=== PATIENT | female | born 1960 | race Two or more races ===

== ENCOUNTER → 2020-03-18 | Outpatient (CLI) | payer OTHER ==
[2020-03-18 08:26] LABS: Basophils # (auto) 0.1 10 ^3/uL (0-0.2); Basophils % (auto) 1.2 % (0.0-2.0); Eosinophils # (auto) 0.2 10 ^3/uL (0-0.8); Eosinophils % (auto) 3.2 % (0.0-7.0); Hematocrit 40.8 % (36.0-46.0); Hemoglobin 13.6 g/dL (12.2-16.2); Lymphocytes % (auto) 35.7 % (10.0-50.0); Mean Corpuscular Hemoglobin 28.8 pg (28.0-32.0); Mean Corpuscular Hgb Conc. 33.4 g/dL (32.0-36.0); Mean Corpuscular Volume 86.3 fL (80.0-100.0); Monocytes # (auto) 0.5 10 ^3/uL (0-1.3); Monocytes % (auto) 8.3 % (0.0-12.0); Neutrophils # (auto) 2.9 10 ^3/uL (1.6-8.6); Neutrophils % (auto) 51.6 % (37.0-80.0); Nucleated Red Blood Cells % 0.1 %; Platelet Count (auto) 308 10^3/uL (140-450); Red Blood Cells 4.72 10^6/uL (4.0-5.20); Red Cell Distribution Width 13.1 % (11.8-14.3); White Blood Cell 5.6 10^3/uL (4.4-10.8)
[2020-03-18 08:31] LABS: Urine Bacteria NONE SEEN /hpf (None Seen); Urine Blood TRACE /uL (Negative); Urine Specific Gravity 1.018 (1.001-1.035); Urine WBC 1 /hpf (0 - 5)
[2020-03-18 09:31] LABS: Potassium 3.9 mmol/L (3.5-5.1)
[2020-03-18 09:39] LABS: Albumin 4.2 g/dL (3.4-5.0); Bilirubin, Total 0.5 mg/dL (0.2-1.0); Calcium 9.1 mg/dL (8.5-10.1); Total Protein 7.9 g/dL (6.4-8.2)
== END | disposition home or self-care (01) ==
LOC: LAB 07:44
PROVIDERS: ATTEND Internal Medicine
DX: E78.1 Pure hyperglyceridemia (principal); R53.83 Other fatigue
CPT/HCPCS: 36415; 80053; 80061; 81001; 84439; 84443; 85025; 85652

== ENCOUNTER → 2020-07-27 | Outpatient (CLI) | payer OTHER | END | disposition home or self-care (01) | LOC: LAB 15:31 | PROVIDERS: ATTEND Urology | DX: N39.0 Urinary tract infection, site not specified (principal) | CPT/HCPCS: 87086 ==

== ENCOUNTER → 2021-03-29 | Outpatient (CLI) | payer OTHER ==
[2021-03-29 10:41] LABS: Basophils # (auto) 0.1 10 ^3/uL (0-0.2); Basophils % (auto) 1.1 % (0.0-2.0); Eosinophils # (auto) 0.2 10 ^3/uL (0-0.8); Eosinophils % (auto) 3.9 % (0.0-7.0); Hematocrit 39.5 % (36.0-46.0); Hemoglobin 13.4 g/dL (12.2-16.2); Lymphocytes # (auto) 1.9 10 ^3/uL (0.4-5.4); Lymphocytes % (auto) 37.7 % (10.0-50.0); Mean Corpuscular Hemoglobin 29.1 pg (28.0-32.0); Mean Corpuscular Volume 85.6 fL (80.0-100.0); Monocytes # (auto) 0.3 10 ^3/uL (0-1.3); Monocytes % (auto) 6.8 % (0.0-12.0); Neutrophils # (auto) 2.6 10 ^3/uL (1.6-8.6); Neutrophils % (auto) 50.5 % (37.0-80.0); Red Blood Cells 4.61 10^6/uL (4.0-5.20); Red Cell Distribution Width 12.7 % (11.8-14.3); White Blood Cell 5.1 10^3/uL (4.4-10.8)
[2021-03-29 11:07] LABS: Urine Bacteria FEW /hpf (None Seen); Urine Blood Negative /uL (Negative); Urine WBC 4 /hpf (0 - 5)
[2021-03-29 11:33] LABS: Potassium 4.3 mmol/L (3.5-5.1)
[2021-03-29 12:12] LABS: Albumin 4.6 g/dL (3.4-5.0); BUN/Creatinine Ratio 27.6; Bilirubin, Total 0.6 mg/dL (0.2-1.0); Calcium 9.3 mg/dL (8.5-10.1); Total Protein 7.8 g/dL (6.4-8.2)
== END | disposition home or self-care (01) ==
LOC: LAB 10:03
PROVIDERS: ATTEND Internal Medicine
DX: E78.1 Pure hyperglyceridemia (principal)
CPT/HCPCS: 36415; 80053; 80061; 81001; 84439; 84443; 85025; 85652

== ENCOUNTER → 2021-04-06 | Outpatient (CLI) | payer OTHER | END | disposition home or self-care (01) | LOC: LAB 09:49 | PROVIDERS: ATTEND Internal Medicine | DX: Z12.11 Encounter for screening for malignant neoplasm of colon (principal) | CPT/HCPCS: 82270 ==

== ENCOUNTER → 2021-10-19 | Outpatient (CLI) | payer OTHER ==
[2021-10-19 09:42] LABS: Basophils # (auto) 0.1 10 ^3/uL (0-0.2); Eosinophils # (auto) 0.1 10 ^3/uL (0-0.8); Eosinophils % (auto) 1.9 % (0.0-7.0); Hemoglobin 13.5 g/dL (12.2-16.2); Lymphocytes # (auto) 1.9 10 ^3/uL (0.4-5.4); Mean Corpuscular Hemoglobin 29.5 pg (28.0-32.0); Mean Corpuscular Hgb Conc. 34.5 g/dL (32.0-36.0); Mean Corpuscular Volume 85.5 fL (80.0-100.0); Monocytes # (auto) 0.4 10 ^3/uL (0-1.3); Monocytes % (auto) 6.8 % (0.0-12.0); Neutrophils # (auto) 3.3 10 ^3/uL (1.6-8.6); Neutrophils % (auto) 57.3 % (37.0-80.0); Red Blood Cells 4.56 10^6/uL (4.0-5.20); Red Cell Distribution Width 13.1 % (11.8-14.3); White Blood Cell 5.8 10^3/uL (4.4-10.8)
[2021-10-19 10:37] LABS: Urine Bacteria NONE SEEN /hpf (None Seen); Urine Blood Negative /uL (Negative); Urine Specific Gravity 1.005 (1.001-1.035); Urine WBC <1 /hpf (0 - 5)
[2021-10-19 11:26] LABS: Albumin 4.4 g/dL (3.4-5.0); Calcium 9.7 mg/dL (8.5-10.1); Potassium 4.4 mmol/L (3.5-5.1)
[2021-10-19 11:31] LABS: BUN/Creatinine Ratio 20.8; Bilirubin, Total 0.5 mg/dL (0.2-1.0)
== END | disposition home or self-care (01) ==
LOC: LAB 09:16
PROVIDERS: ATTEND Internal Medicine
DX: K21.9 Gastro-esophageal reflux disease without esophagitis (principal); E78.1 Pure hyperglyceridemia
CPT/HCPCS: 36415; 80053; 80061; 81001; 84439; 84443; 85025; 85652

== ENCOUNTER → 2022-10-10 | Outpatient (CLI) | payer OTHER | END | disposition home or self-care (01) | LOC: LAB 12:21 | PROVIDERS: ATTEND Internal Medicine | DX: Z12.11 Encounter for screening for malignant neoplasm of colon (principal) | CPT/HCPCS: 82270 ==

== ENCOUNTER → 2022-11-21 | Outpatient (CLI) | payer OTHER ==
[2022-11-21 07:56] LABS: Basophils # (auto) 0.1 10 ^3/uL (0-0.2); Basophils % (auto) 1.3 % (0.0-2.0); Eosinophils # (auto) 0.2 10 ^3/uL (0-0.8); Eosinophils % (auto) 4.3 % (0.0-7.0); Hematocrit 38.1 % (36.0-46.0); Hemoglobin 13.1 g/dL (12.2-16.2); Lymphocytes # (auto) 2.5 10 ^3/uL (0.4-5.4); Lymphocytes % (auto) 48.6 % (10.0-50.0); Mean Corpuscular Hemoglobin 28.8 pg (28.0-32.0); Mean Corpuscular Hgb Conc. 34.4 g/dL (32.0-36.0); Mean Corpuscular Volume 83.6 fL (80.0-100.0); Monocytes # (auto) 0.3 10 ^3/uL (0-1.3); Monocytes % (auto) 6.7 % (0.0-12.0); Neutrophils % (auto) 39.1 % (37.0-80.0); Nucleated Red Blood Cells % 0.1 %; Red Blood Cells 4.55 10^6/uL (4.0-5.20); Red Cell Distribution Width 13.2 % (11.8-14.3); White Blood Cell 5.1 10^3/uL (4.4-10.8)
[2022-11-21 08:06] LABS: Urine Bacteria NONE SEEN /hpf (None Seen); Urine Blood 1+ /uL (Negative); Urine Mucus FEW (None Seen); Urine Specific Gravity 1.021 (1.001-1.035); Urine WBC 3 /hpf (0 - 5)
[2022-11-21 08:28] LABS: Potassium 4.3 mmol/L (3.5-5.1)
[2022-11-21 08:32] LABS: BUN/Creatinine Ratio 25.8; Bilirubin, Total 0.5 mg/dL (0.2-1.0); Total Protein 7.3 g/dL (6.4-8.2); Uric Acid 4.2 mg/dL (2.6-6.0)
== END | disposition home or self-care (01) ==
LOC: LAB 07:32
PROVIDERS: ATTEND Internal Medicine
DX: S46.009A Unspecified injury of muscle(s) and tendon(s) of the rotator cuff of unspecified shoulder, initial encounter (principal); N20.0 Calculus of kidney; X58.XXXA Exposure to other specified factors, initial encounter; Y93.89 Activity, other specified; Y92.89 Other specified places as the place of occurrence of the external cause; Y99.8 Other external cause status
CPT/HCPCS: 36415; 80053; 80061; 81001; 83970; 84439; 84443; 84550; 85025; 85652

== ENCOUNTER → 2023-09-27 | Outpatient (CLI) | payer OTHER | END | disposition home or self-care (01) | LOC: LAB 12:28 | PROVIDERS: ATTEND Internal Medicine | DX: E78.1 Pure hyperglyceridemia (principal); M25.50 Pain in unspecified joint; D57 Sickle-cell disorders | CPT/HCPCS: 82274 ==

== ENCOUNTER → 2024-11-04 | Outpatient (CLI) | payer OTHER ==
[2024-11-04 12:41] LABS: Basophils # (auto) 0 10 ^3/uL (0-0.2); Basophils % (auto) 0.6 % (0.0-2.0); Eosinophils # (auto) 0.1 10 ^3/uL (0-0.8); Eosinophils % (auto) 1.2 % (0.0-7.0); Hematocrit 38.9 % (36.0-46.0); Hemoglobin 13.3 g/dL (12.2-16.2); Lymphocytes # (auto) 2.1 10 ^3/uL (0.4-5.4); Lymphocytes % (auto) 31.2 % (10.0-50.0); Mean Corpuscular Hemoglobin 29.2 pg (28.0-32.0); Mean Corpuscular Hgb Conc. 34.2 g/dL (32.0-36.0); Mean Corpuscular Volume 85.3 fL (80.0-100.0); Monocytes # (auto) 0.5 10 ^3/uL (0-1.3); Monocytes % (auto) 7.5 % (0.0-12.0); Neutrophils # (auto) 3.9 10 ^3/uL (1.6-8.6); Neutrophils % (auto) 59.5 % (37.0-80.0); Nucleated Red Blood Cells % 0.1 %; Platelet Count (auto) 373 10^3/uL (140-450); Red Blood Cells 4.56 10^6/uL (4.0-5.20); Red Cell Distribution Width 13.5 % (11.8-14.3); White Blood Cell 6.6 10^3/uL (4.4-10.8)
[2024-11-04 13:20] LABS: Erythrocyte Sedimentation Rate 23 mm/hr (0-20)
[2024-11-04 13:24] LABS: Alanine Aminotransferase 26 U/L (7-40); Alkaline Phosphatase 63 U/L (46-116); Anion Gap 9 (5-15); Blood Urea Nitrogen 13 mg/dL (9-23); CRP High Sensitivity 0.18 mg/dL (<1.0); Calcium 9.8 mg/dL (8.7-10.4); Carbon Dioxide 27 mmol/L (20-31); Chloride 104 mmol/L (98-107); Glucose 87 mg/dL (74-106); Potassium 4.1 mmol/L (3.5-5.1); Sodium 140 mmol/L (136-145)
[2024-11-04 13:25] LABS: Aspartate Aminotransferase 16 U/L (13-40); Bilirubin, Total 0.4 mg/dL (0.2-1.0); Total Protein 7.3 g/dL (5.7-8.2)
[2024-11-04 13:36] LABS: Albumin 4.9 g/dL (3.2-4.8)
[2024-11-04 14:10] LABS: Uric Acid 6.7 mg/dL (3.1-7.8)
[2024-11-05 08:07] LABS: Complement C3 156 mg/dL (82-167); Rheumatoid Arthritis Factor 10.7 IU/mL (<14.0); Thyroid Peroxidase (TPO) Ab 12 IU/mL (0-34)
[2024-11-05 16:07] LABS: Anti-Nuclear Antibody Direct Negative (Negative); Anti-dsDNA Antibody 1 IU/mL (0-9); Antiscleroderma-70 Antibody <0.2 AI (0.0-0.9); RNP Antibody 0.2 AI (0.0-0.9); Sjogren's Anti-SS-A Antibody <0.2 AI (0.0-0.9); Sjogren's Anti-SS-B Antibody <0.2 AI (0.0-0.9); Smith Antibody <0.2 AI (0.0-0.9)
== END | disposition home or self-care (01) ==
LOC: LAB 12:04
PROVIDERS: ATTEND Internal Medicine
DX: E78.1 Pure hyperglyceridemia (principal); M25.50 Pain in unspecified joint; R20.2 Paresthesia of skin
CPT/HCPCS: 36415; 80053; 82607; 84443; 84550; 85025; 85652; 86141; 86160; 86225; 86235; 86376; 86431

== ENCOUNTER 2025-01-17 03:38 | Inpatient (IN) | payer OTHER ==
[2025-01-17] VITALS (7 sets, daily range): BP systolic 107–115; BP diastolic 51–61; PULSE 87–111; RESP 18–23; TEMP 98.6–99.8; O2SAT 95–98
[~2025-01-17] VITALS: Ht 157.5 cm; Wt 58.0 kg
[2025-01-17] MEDS ORDERED: ASPirin 81 mg TAB PO ONE (04:15)
[2025-01-17] MEDS ORDERED: ACETAMINOPHEN 325 MG TAB PO ONE (04:15)
[2025-01-17] MEDS: cefTRIAXone 1GM/50ML D5W 50 ML IV ONE (04:21)
[2025-01-17] MEDS: SODIUM CHLORIDE 0.9% 1,000 ML IV ONE ×2 (04:21→05:39)
[2025-01-17 04:27] LABS: Basophils # (auto) 0 10 ^3/uL (0-0.2); Eosinophils # (auto) 0 10 ^3/uL (0-0.8); Hematocrit 38.4 % (36.0-46.0); Hemoglobin 12.9 g/dL (12.2-16.2); Lymphocytes # (auto) 0.6 10 ^3/uL (0.4-5.4); Lymphocytes % (auto) 4.6 % (10.0-50.0); Mean Corpuscular Hemoglobin 28.8 pg (28.0-32.0); Mean Corpuscular Hgb Conc. 33.6 g/dL (32.0-36.0); Mean Corpuscular Volume 85.6 fL (80.0-100.0); Monocytes # (auto) 0.2 10 ^3/uL (0-1.3); Monocytes % (auto) 1.2 % (0.0-12.0); Neutrophils # (auto) 13.1 10 ^3/uL (1.6-8.6); Neutrophils % (auto) 94.2 % (37.0-80.0); Platelet Count (auto) 237 10^3/uL (140-450); Red Blood Cells 4.48 10^6/uL (4.0-5.20); Red Cell Distribution Width 13.8 % (11.8-14.3); White Blood Cell 13.9 10^3/uL (4.4-10.8)
--- NOTE | 2025-01-17 04:56 | DVH ---
EXAM: XY CHEST XRAY 1 VIEW HISTORY: cp COMPARISON: None TECHNIQUE: Portable AP view of the chest was performed. FINDINGS: There are dense infiltrates in the left mid to lower lung. There is mild linear scarring or atelectas is in the right mid lung. No pneumothorax. The left heart border is obscured. IMPRESSION: 1. Consolidative pneumonia in the left mid to lower lung. 2. Mild scarring or atelectasis in the right mid lung.
[2025-01-17 04:57] LABS: Alanine Aminotransferase 17 U/L (7-40); Albumin 4.7 g/dL (3.2-4.8); Alkaline Phosphatase 66 U/L (46-116); Anion Gap 14 (5-15); Aspartate Aminotransferase 28 U/L (13-40); BUN/Creatinine Ratio 33.3 (10.0-20.0); Calcium 8.7 mg/dL (8.7-10.4); Carbon Dioxide 24 mmol/L (20-31); Magnesium 2.1 mg/dL (1.6-2.6); Potassium 3.7 mmol/L (3.5-5.1); Total Protein 7.5 g/dL (5.7-8.2)
[2025-01-17] MEDS: ONDANSETRON HCL 4 MG/2 ML VIAL IV ONE (05:00)
[2025-01-17] MEDS: ACETAMINOPHEN IV 1000 MG/100ML (10MG/ML) IV ONE (05:00)
[2025-01-17 05:01] LABS: Bilirubin, Total 1.4 mg/dL (0.2-1.0); Blood Urea Nitrogen 31 mg/dL (9-23); Chloride 95 mmol/L (98-107); Glucose 125 mg/dL (74-106); Sodium 133 mmol/L (136-145)
--- NOTE | 2025-01-17 05:17 | ED.PDOC ---
History of Present Illness HPI Comments 64-year-old female who came to ER due to chest pain. Patient states for the past 5 days she has been experiencing left lower ribcage pain/ left upper quadrant pain, aggravated by coughing. Patient noted to be pale, diaphoretic and short of breath. Upon arrival, patient hypotensive at 85/56 mm Hg, tachycardic at 120s and was saturating at low 80s on room air. Chief Complaint: Chest Pain Time Seen by MD: 04:00 Reviewed Notes: Nurses Notes Allergies: Coded Allergies: NO KNOWN ALLERGIES (Unverified , 01/17/25) Home Meds Reported Medications Fenofibrate (FENOFIBRATE) 48 Mg Tab, 1 TAB PO DAILY 01/17/25 Information Source: Patient Mode of Arrival: Ambulatory Severity: Moderate Timing: Days Duration: Since onset Review of Systems REVIEW OF SYSTEMS: No fever, no chills, or fatigue HEENT: No sore throat, no earache, no congestion, no neck pain. Cardiac: (+) chest pain. No palpitations. Lungs: (+) shortness of breath, (+) cough. GI: No nausea, no vomiting, no diarrhea, no constipation, no abdominal pain : No dysuria, frequency, or urgency. No hematuria. Musculoskeletal: No joint pain , no joint swelling, no extremity edema. Skin: No rash, no itching. Neuro: No headache, no dizziness, no weakness Vital Signs Vital Signs Date Time Temp Pulse Resp B/P (MAP) Pulse Ox O2 Delivery O2 Flow Rate FiO2 01/17/25 06:52 98.9 102 21 120/82 (95) 95 98.9 01/17/25 06:06 Nasal Cannula* 5 40 Physical Exam General: Awake, alert and oriented. No acute distress. Skin: Skin in warm, dry and intact. Appropriate color for ethnicity. Nailbeds pink with no cyanosis. HEENT: The head is normocephalic and atraumatic. Conjunctivae are clear without exudates or hemorrhage. Sclera is non-icteric. EOM are intact. No signs of nystagmus. Eyelids are normal in appearance without swelling or lesions. Oral mucosa is pink and moist Neck: The neck is supple with normal range of motion. No JVD. Cardiac: Heart rate and rhythm are normal. No murmurs, gallops, or rubs are auscultated. Respiratory: No signs of respiratory distress. Diminished breath sounds left lower lobe. Abdominal: Abdomen is soft, non-tender without distention. Bowel sounds are present and normoactive in all four quadrants. Extremities: Upper and lower extremities are atraumatic in appearance without deformity or edema. Neurological: The patient is awake, alert and oriented to person, place, and time with normal speech. Speech is clear. There is no facial asymmetry. Psychiatric: Appropriate mood and affect. Good judgement and insight. Past Medical History PAST MEDICAL HISTORY: Denies Surgical History: Denies all surgeries RN TRAVELING History: Denies all RN TRAVELING Hx Family History Family History: Reviewed,noncontributory to illness Social History Smoker: Non-Smoker Alcohol: Denies ETOH Use Drugs: Denies Drug Use Lives In: Home Was a procedure done? Was a procedure done?: No EKG EKG : Pulse Rate (adult): 117 Cardiac Rhythm: ST Hypertrophy: RAÚL, LVH Comments No STEMI Differential Dx Considerations may include: Anemia, electrolyte imbalance, pneumonia, upper respiratory infection, mi X-Ray, Labs, Meds, VS Vital Signs Date Time Temp Pulse Resp B/P (MAP) Pulse Ox O2 Delivery O2 Flow Rate FiO2 01/17/25 06:52 98.9 102 21 120/82 (95) 95 98.9 01/17/25 06:06 111 21 95 Nasal Cannula* 5 40 01/17/25 05:40 117 01/17/25 05:02 100.2 111 33 112/63 (79) 95 100.2 01/17/25 04:11 111 01/17/25 03:46 117 01/17/25 03:40 99.9 121 36 86/56 (66) 89 99.9 01/17/25 03:40 92 Nasal Cannula* 2 28 Lab Test 01/17/25 06:55 01/17/25 04:41 01/17/25 04:18 01/17/25 03:46 Range/Units Lactic Acid Level 2.8 *H 3.5 *H 0.4-2.0 mmol/L Troponin I High Sensitivity 4 4 4 </=34 ng/L Lipase 38 12-53 U/L POC Glucose 120 H 70-106 mg/dl White Blood Count 13.9 H 4.4-10.8 10^3/uL Red Blood Count 4.48 4.0-5.20 10^6/uL Hemoglobin 12.9 12.2-16.2 g/dL Hematocrit 38.4 36.0-46.0 % Mean Corpuscular Volume 85.6 80.0-100.0 fL Mean Corpuscular Hemoglobin 28.8 28.0-32.0 pg Mean Corpuscular Hemoglobin Concent 33.6 32.0-36.0 g/dL Red Cell Distribution Width 13.8 11.8-14.3 % Platelet Count 237 140-450 10^3/uL Mean Platelet Volume 7.1 6.9-10.8 fL Neutrophils (%) (Auto) 94.2 H 37.0-80.0 % Lymphocytes (%) (Auto) 4.6 L 10.0-50.0 % Monocytes (%) (Auto) 1.2 0.0-12.0 % Eosinophils (%) (Auto) 0.0 0.0-7.0 % Basophils (%) (Auto) 0.0 0.0-2.0 % Neutrophils # (Auto) 13.1 H 1.6-8.6 10 ^3/uL Lymphocytes # (Auto) 0.6 0.4-5.4 10 ^3/uL Monocytes # (Auto) 0.2 0-1.3 10 ^3/uL Eosinophils # (Auto) 0 0-0.8 10 ^3/uL Basophils # (Auto) 0 0-0.2 10 ^3/uL Nucleated Red Blood Cells 0.0 % Sodium Level 133 L 136-145 mmol/L Potassium Level 3.7 3.5-5.1 mmol/L Chloride Level 95 L 98-107 mmol/L Carbon Dioxide Level 24 20-31 mmol/L Anion Gap 14 5-15 Blood Urea Nitrogen 31 H 9-23 mg/dL Creatinine 0.93 0.550-1.02 mg/dL Glomerular Filtration Rate Calc 69 >90 mL/min BUN/Creatinine Ratio 33.3 H 10.0-20.0 Serum Glucose 125 H 74-106 mg/dL Hemoglobin A1c 6.0 H <5.7 % A1C Calcium Level 8.7 8.7-10.4 mg/dL Magnesium Level 2.1 1.6-2.6 mg/dL Total Bilirubin 1.4 H 0.2-1.0 mg/dL Aspartate Amino Transferase (AST) 28 13-40 U/L Alanine Aminotransferase (ALT) 17 7-40 U/L Alkaline Phosphatase 66 46-116 U/L B-Type Natriuretic Peptide 15.40 0-100 pg/mL Total Protein 7.5 5.7-8.2 g/dL Albumin 4.7 3.2-4.8 g/dL Triglycerides Level 187 H < 150 mg/dL Cholesterol Level 125 < 200 mg/dL LDL Cholesterol 48 < 100 mg/dL HDL Cholesterol 28 L 40-59 mg/dL Thyroid Stimulating Hormone (TSH) 0.58 0.55-4.78 uIU/mL Current Medications Medications (Trade) Dose Ordered Sig/Prisca Route Start Time Stop Time Status Last Admin Sodium Chloride 1,000 ml @ 1,000 mls/hr Q1H ONCE IV 01/17/25 04:15 01/17/25 05:14 DC 01/17/25 04:21 Sodium Chloride 1,000 ml @ 130 mls/hr Q7H42M ONCE IV 01/17/25 04:15 01/17/25 11:56 DC 01/17/25 05:39 Ceftriaxone Sodium 50 ml @ 100 mls/hr ONCE ONCE IV 01/17/25 04:15 01/17/25 04:44 DC 01/17/25 04:21 Ondansetron HCl (Zofran) 4 mg ONCE ONCE IV 01/17/25 05:00 01/17/25 05:01 DC 01/17/25 05:00 Acetaminophen (Ofirmev) 1,000 mg ONCE ONCE IV 01/17/25 05:00 01/17/25 05:01 DC 01/17/25 05:00 EXAM: XY CHEST XRAY 1 VIEW HISTORY: cp COMPARISON: None TECHNIQUE: Portable AP view of the chest was performed. FINDINGS: There are dense infiltrates in the left mid to lower lung. There is mild linear scarring or atelectasis in the right mid lung. No pneumothorax. The left heart border is obscured. IMPRESSION: 1. Consolidative pneumonia in the left mid to lower lung. 2. Mild scarring or atelectasis in the right mid lung. Time of 1ST Reevaluation: 05:35 Reevaluation 1ST: Unchanged Patient Education/Counseling: Diagnosis, Treatment, Other (Need for admission) Family Education/Counseling: No Family Present Departure 1 Departure Time of Disposition: 05:17 Impression: Primary Impression: Pneumonia Additional Impressions: Hypoxia Sepsis Disposition: 09 ADMITTED INPATIENT Condition: Stable Comments Extensive evaluation was performed in attempt to identify or rule out: (See differential diagnosis section) The following tests were ordered, and results were reviewed by me and discussed with patient: (See diagnostic results section) The following test were independently interpreted by me: EKG I reviewed and agreed with the following test results read by other providers: Chest x-ray I reviewed the following notes from the pt's past medical encounters: N/A Additional information was gathered from interviewing the following independent historians: N/A Discussion of management or test interpretation with external physician/other qualified health foster care worker: N/A Addressed an acute or chronic illness that poses a threat to life or bodily function: Pneumonia, sepsis, hypoxia Decision regarding hospitalization or escalation of hospital level of care: Risk and benefits of admission for further treatment of patient's condition was considered. Due to patient's current clinical condition, high risk of decline and poor outcome if discharged and need for further inpatient management and monitoring, patient will be admitted to the hospital. Drug therapy requiring intensive monitoring for toxicity: N/A Parenteral controlled substances: N/A Decision regarding elective major surgery with identified patient or procedure risk factors: N/A Decision regarding emergency major surgery: N/A Decision not to resuscitate or to de-escalate care because of poor prognosis: N/A Diagnosis or treatment significantly limited by social determinants of health: N/A Critical Care Note Critical Care Time?: Yes (30 min-critical care time only) Critical care comment: Hypoxia, shortness a breath, sepsis Due to a high probability of clinically significant, life threatening deterioration, the patient required my highest level of preparedness to intervene emergently and I personally spent this critical care time directly and personally managing the patient. This critical care time included obtaining a history; examining the patient; pulse oximetry; ordering and review of studies; arranging urgent treatment with development of a management plan; evaluation of patient's response to treatment; frequent reassessment; and, discussions with other providers. This critical care time was performed to assess and manage the high probability of imminent, life-threatening deterioration that could result in multi-organ failure. It was exclusive of separately billable procedures and treating other patients and teaching time. Please see my other sections and the rest of the note for further information on patient assessment and treatment. Stability Stability form required: No Heart Score Heart Score: Heart Score Response (Comments) Value History Moderate Suspicious 1 EKG Repolarization Disturb 1 Age 45-64 1 Risk Factors 1 or 2 risk factors 1 Troponin Normal limit 0 Total 4 I personally scribed for MANDEEP FAITH MD ([email or web address]) on 01/17/25 at 05:40. Electronically submitted by Phill Hood ([email or web address]). MANDEEP FAITH MD January 17, 2025 05:17
[2025-01-17 05:40] LABS: Lactic Acid w/Reflex 3.5 mmol/L (0.4-2.0)
[2025-01-17] MEDS ORDERED: MORPHINE SULFATE 4 MG/ML SYR/VIAL IV PRN (07:30)
[2025-01-17] MEDS ORDERED: NITROGLYCERIN 0.4 MG SL TAB SL PRN ×2 (07:30)
[2025-01-17] MEDS ORDERED: ONDANSETRON HCL 4 MG/2 ML VIAL IV PRN (07:30)
[2025-01-17] MEDS ORDERED: MORPHINE SULFATE INJ 2 MG/ml SYRG IV PRN (07:30)
[2025-01-17] MEDS ORDERED: FENO48TA13 PO (07:37)
[2025-01-17] MEDS ORDERED: SENNA 8.6 MG TAB PO PRN (07:45)
[2025-01-17 07:50] LABS: Urine Bacteria None Seen /hpf (None Seen)
--- NOTE | 2025-01-17 07:51 | DVHHP2 ---
History of Present Illness Reason for Visit: Chest pain History of Present Illness Sara Calvo is a 64-year-old female with past medical history of hyperlipidemia and hysterectomy who presents to the ED with chest pain that started since Monday. She states that she was grocery shopping then came home when the pain suddenly started she states the pain is 6/10 squeezing in nature and intermittent. Patient endorses that chest pain comes about when she coughs. Patient also reports that she does not use home oxygen however upon examination she is on 3 L nasal cannula. Patient denies any recent trauma or injury, recent sick contacts, recent travels, recent ingestion of spoiled food, any productive phlegm, lightheadedness, weakness, dizziness, abdominal pain, nausea, vomiting, or diarrhea. Cardiovascular: hyperipidemia Past Surgical History: Hysterectomy Family History: Cancer, Other (Blood cancer per patient unsure which type) Smoke: No ALCOHOL: none Drugs: None Lives: with Family Domestic Violence: Neg Review of Systems Cardiovascular: Chest Pain Allergies: Coded Allergies: NO KNOWN ALLERGIES (Unverified , 01/17/25) Medications Current Medications Medications Dose Ordered Sig/Prisca Route Start Time Stop Time Status Last Admin Dose Admin Ceftriaxone Sodium 50 ml @ 100 mls/hr DAILY@09 IV 01/17/25 09:00 UNV Aspirin 81 mg DAILY PO 01/17/25 10:00 UNV Atorvastatin Calcium 40 mg HS PO 01/17/25 22:00 UNV Carvedilol 6.25 mg Q12HR PO 01/17/25 10:00 UNV Morphine Sulfate 2 mg Q30MP PRN IV 01/17/25 07:30 UNV Acetaminophen 650 mg Q6HP PRN PO 01/17/25 07:30 UNV Nitroglycerin 0.4 mg Q5MINP PRN SL 01/17/25 07:30 UNV Ondansetron HCl 4 mg Q4HP PRN IV 01/17/25 07:30 UNV Nitroglycerin 0.4 mg Q5MINP PRN SL 01/17/25 07:30 UNV Morphine Sulfate 2 mg Q30M PRN IV 01/17/25 07:30 UNV Exam Vital Signs Vital Signs Date Time Temp Pulse Resp B/P (MAP) Pulse Ox O2 Delivery O2 Flow Rate FiO2 01/17/25 06:52 98.9 102 21 120/82 (95) 95 98.9 01/17/25 06:06 Nasal Cannula* 5 40 General Appearance: Alert, Oriented X3, Cooperative, No acute distress HEENT: Atraumatic, PERRLA, EOMI, Mucous membr. moist/pink Respiratory: Clear to auscultation, Normal air movement Cardiovascular: Normal S1, Normal S2, No murmurs Abdominal: Normal bowel sounds, Soft, No tenderness, No hepatospenomegaly, No masses Extremities: No clubbing, No cyanosis, No edema, Normal pulses, No tenderness/swelling Skin: No significant lesion Neuro: Normal speech, Strength at 5/5 X4 ext, Normal tone, Sensation intact Psych/Mental Status: Mental status NL, Mood NL Labs/Xrays Labs Test 01/17/25 06:55 01/17/25 04:41 01/17/25 04:18 01/17/25 03:46 Range/Units Lactic Acid Level 2.8 *H 0.4-2.0 mmol/L Lipase 38 12-53 U/L POC Glucose 120 H 70-106 mg/dl White Blood Count 13.9 H 4.4-10.8 10^3/uL Red Blood Count 4.48 4.0-5.20 10^6/uL Hemoglobin 12.9 12.2-16.2 g/dL Hematocrit 38.4 36.0-46.0 % Mean Corpuscular Volume 85.6 80.0-100.0 fL Mean Corpuscular Hemoglobin 28.8 28.0-32.0 pg Mean Corpuscular Hemoglobin Concent 33.6 32.0-36.0 g/dL Red Cell Distribution Width 13.8 11.8-14.3 % Platelet Count 237 140-450 10^3/uL Mean Platelet Volume 7.1 6.9-10.8 fL Neutrophils (%) (Auto) 94.2 H 37.0-80.0 % Lymphocytes (%) (Auto) 4.6 L 10.0-50.0 % Monocytes (%) (Auto) 1.2 0.0-12.0 % Eosinophils (%) (Auto) 0.0 0.0-7.0 % Basophils (%) (Auto) 0.0 0.0-2.0 % Neutrophils # (Auto) 13.1 H 1.6-8.6 10 ^3/uL Lymphocytes # (Auto) 0.6 0.4-5.4 10 ^3/uL Monocytes # (Auto) 0.2 0-1.3 10 ^3/uL Eosinophils # (Auto) 0 0-0.8 10 ^3/uL Basophils # (Auto) 0 0-0.2 10 ^3/uL Nucleated Red Blood Cells 0.0 % Sodium Level 133 L 136-145 mmol/L Potassium Level 3.7 3.5-5.1 mmol/L Chloride Level 95 L 98-107 mmol/L Carbon Dioxide Level 24 20-31 mmol/L Anion Gap 14 5-15 Blood Urea Nitrogen 31 H 9-23 mg/dL Creatinine 0.93 0.550-1.02 mg/dL Glomerular Filtration Rate Calc 69 >90 mL/min BUN/Creatinine Ratio 33.3 H 10.0-20.0 Serum Glucose 125 H 74-106 mg/dL Calcium Level 8.7 8.7-10.4 mg/dL Magnesium Level 2.1 1.6-2.6 mg/dL Total Bilirubin 1.4 H 0.2-1.0 mg/dL Aspartate Amino Transferase (AST) 28 13-40 U/L Alanine Aminotransferase (ALT) 17 7-40 U/L Alkaline Phosphatase 66 46-116 U/L B-Type Natriuretic Peptide 15.40 0-100 pg/mL Total Protein 7.5 5.7-8.2 g/dL Albumin 4.7 3.2-4.8 g/dL EXAM: XY CHEST XRAY 1 VIEW HISTORY: cp COMPARISON: None TECHNIQUE: Portable AP view of the chest was performed. FINDINGS: There are dense infiltrates in the left mid to lower lung. There is mild linear scarring or atelectasis in the right mid lung. No pneumothorax. The left heart border is obscured. IMPRESSION: 1. Consolidative pneumonia in the left mid to lower lung. 2. Mild scarring or atelectasis in the right mid lung. Assessment/Plan Assessment/Plan Assessment Chest pain rule out ACS likely due to costochondritis Pyrexia Acute hypoxic respiratory failure Leukocytosis and probable sepsis likely due to pneumonia Hyperbilirubinemia Hyponatremia Constipation History of hyperlipidemia History of hysterectomy Plan Admit to tele Supportive oxygen Duo nebs Lactic level Chest x-ray noted Blood cultures Urine cultures Antipyretics Antiemetics IV antibiotics-ceftriaxone NS 2 L given ED Aspirin Lipase level Magnesium level BNP EKG Troponin negative UA Echo ordered UDS TSH Lipid panel A1c Bowel regimen Diet Home medications reconciled DVT prophylaxis-not indicated patient ambulating PUD prophylaxis-not indicated no history of GERD or GI bleed Discussed plan of care with patient and nurse Plan discussed with: Patient My Orders Orders - GIORGI GONSALVES HEAD BUCKER Procedure Category Date Status Time Ceftriaxone 1gm/50ml PHA 01/17/25 Logged D5w (Rocephin) 09:00 Admit ADMIT 01/17/25 Transmitted 07:29 Code Status CODE 01/17/25 Transmitted 07:29 Quartz Miner Blasting SCOTT 01/17/25 In Process 07:29 Cardiac DIET 01/17/25 Transmitted Diet-2gna,Lofat,Lochol Breakfast Aspirin Tablet PHA 01/17/25 Logged 10:00 Atorvastatin (Lipitor) PHA 01/17/25 Logged 22:00 Carvedilol Tablet PHA 01/17/25 Logged (Coreg Tablet) 10:00 Morphine Sulfate PHA 01/17/25 Logged Injection 07:30 Acetaminophen Tablet PHA 01/17/25 Logged (Tylenol Tablet) 07:30 Complete Blood Count LAB 01/18/25 Verified 04:00 Basic Metabolic Panel LAB 01/18/25 Verified 04:00 Magnesium LAB 01/18/25 Verified 04:00 Echo 2d Mode Cardiac US 01/17/25 Logged DOP 07:29 Nitroglycerin PHA 01/17/25 Logged Sublingual (Ntrostat 07:30 Ondansetron Hcl PHA 01/17/25 Logged (Zofran) 07:30 Electrocardigram EKG 01/18/25 Logged 04:00 Troponin-I Hs LAB 01/17/25 Logged 07:29 Cardiac SCOTT 01/17/25 In Process Rehabilitation - Outpa Nitroglycerin PHA 01/17/25 Transmitted Sublingual (Ntrostat 07:30 Morphine Sulfate PHA 01/17/25 Transmitted Injection 07:30 Stat Ekg For Chest SCOTT 01/17/25 In Process Pain 07:29 Notify Of Changes SCOTT 01/17/25 In Process From Base 07:29 Bottle Machine Operator For SCOTT 01/17/25 In Process 24 Hours 07:29 Emergency Dysrhythmia SCOTT 01/17/25 In Process Protocol 07:29 Rhythm Strips Once SCOTT 01/17/25 In Process Every Shift 07:29 Oxygen By Nasal RT 01/17/25 Transmitted Cannula 07:29 Drug Screen LAB 01/17/25 Logged 07:29 Thyroid Stimulating LAB 01/17/25 Logged Hormone 07:29 Lipid Panel LAB 01/17/25 Verified 07:31 Hemoglobin A1c LAB 01/17/25 Verified 07:31 Date of Service: January 17, 2025 Billing Provider: GIORGI GONSALVES Common Visit Codes: [id number] INP/OBS CARE (HIGH) GIORGI GONSALVES January 17, 2025 07:51
[2025-01-17 07:52] LABS: LDL Cholesterol 48 mg/dL (< 100)
[2025-01-17 07:54] LABS: Cholesterol 125 mg/dL (< 200); HDL Cholesterol 28 mg/dL (40-59); Triglycerides 187 mg/dL (< 150)
[2025-01-17 08:10] LABS: Amphetamine Screen, Urine Neg (NEGATIVE); Barbiturate Scree,Urine Neg (NEGATIVE); Benzodiazephine Screen, Urine Neg (NEGATIVE); Cannabinoid Screen, Urine Neg (NEGATIVE); Cocaine Screen, Urine Neg (NEGATIVE); Opiate Scree,Urine Neg (NEGATIVE); Phencyclidine Screen, Urine Neg (NEGATIVE)
[2025-01-17 08:13] LABS: Urine Blood TRACE /uL (Negative); Urine Clarity Clear (Clear); Urine Color Colorless (Yellow); Urine Protein, UAD Negative (Negative); Urine Specific Gravity 1.005 (1.001-1.035); Urine Squamous Epithelial Cell None Seen /hpf (<5); Urine Urobilinogen Normal (Negative); Urine WBC 1 /HPF (0-5); Urine pH 6.5 (5.0-9.0)
--- NOTE | 2025-01-17 08:42 | DVH ---
Date: 01/17/2025 07:57 AM Examination: XY KUB ABDOMEN SINGLE VIEW History: constipation Comparison: None TECHNIQUE: Frontal views of the abdomen was obtained. FINDINGS: Bowel gas pattern is unremarkable. The lung bases are unremarkable. No acute osseous abnormality identified 10mm left upper renal pole calculus. IMPRESSION: Nonobstructive bowel gas pattern. Large stool burden 10mm left upper renal pole calculus.
[2025-01-17] MEDS: cefTRIAXone 1GM/50ML D5W 50 ML IV SCH (09:19)
[2025-01-17] MEDS: CARVEDILOL 3.125 MG TAB PO SCH (10:00)
[2025-01-17] MEDS: ASPirin 81 mg TAB PO SCH (10:09)
[2025-01-17] MEDS: POLYETHYLENE GLYCOL 17 GM PWDR PO SCH (10:09)
[2025-01-17] MEDS ORDERED: guaiFENesin-DM 100/10mg/5ml SYR PO PRN (16:15)
--- NOTE | 2025-01-17 17:46 | DVHPN2 ---
Subjective History of Present Illness Sara Calvo is a 64-year-old female with past medical history of hyperlipidemia and hysterectomy who presents to the ED with chest pain that started since Monday. She states that she was grocery shopping then came home when the pain suddenly started she states the pain is 6/10 squeezing in nature and intermittent. Patient endorses that chest pain comes about when she coughs. Patient also reports that she does not use home oxygen however upon examination she is on 3 L nasal cannula. Patient denies any recent trauma or injury, recent sick contacts, recent travels, recent ingestion of spoiled food, any productive phlegm, lightheadedness, weakness, dizziness, abdominal pain, nausea, vomiting, or diarrhea. Cardiovascular: hyperipidemia 01/17 - patient in ER, on oxygen maintaining saturations,. Blood pressure stable. Chest x-ray with left lung opacity very clearly visible. Given sepsis picture patient will likely benefit broad-spectrum IV antibiotics and deescalate thereafter. No COVID flu done, we will test. Reviewed: H&P Changes from previous H/P or p: No Changes General: Per HPI Cardiovascular: Chest Pain Objective Vitals Vital Signs Date Time Temp Pulse Resp B/P (MAP) Pulse Ox O2 Delivery O2 Flow Rate FiO2 01/17/25 16:59 99.8 90 20 114/54 (74) 96 99.8 01/17/25 13:41 Room Air* 0 21 Intake/Output Intake and Output 01/17/25 07:00 Intake Total 1180 ml Balance 1180 ml IV Total 1180 ml Exam GEN: Healthy appearing, well-developed, mild distress HEENT: NC/AT; MMM. CV: RRR, no m/r/g. LUNGS: Rhonchi left lower lobe/left middle lobe, on oxygen 3 L nasal cannula ABD: Soft, NT/ND, NBS, no masses or organomegaly. EXT: skin Warm, well perfused. no rashes. No clubbing, cyanosis, or edema. NEURO: Ambulating with no limitations. No focal deficits. Medications Current Medications Medications Dose Ordered Sig/Prisca Route Start Time Stop Time Status Last Admin Dose Admin Ceftriaxone Sodium 50 ml @ 100 mls/hr DAILY@09 IV 01/17/25 09:00 01/17/25 09:19 100 MLS/HR Aspirin 81 mg DAILY PO 01/17/25 10:00 01/17/25 10:09 81 MG Atorvastatin Calcium 40 mg HS PO 01/17/25 22:00 Carvedilol 6.25 mg Q12HR PO 01/17/25 10:00 Morphine Sulfate 2 mg Q30MP PRN IV 01/17/25 07:30 Acetaminophen 650 mg Q6HP PRN PO 01/17/25 07:30 Nitroglycerin 0.4 mg Q5MINP PRN SL 01/17/25 07:30 Ondansetron HCl 4 mg Q4HP PRN IV 01/17/25 07:30 Nitroglycerin 0.4 mg Q5MINP PRN SL 01/17/25 07:30 Morphine Sulfate 2 mg Q30M PRN IV 01/17/25 07:30 Patient Own Medication 1 tab DAILY PO 01/17/25 10:00 Polyethylene Glycol 17 gm DAILY PO 01/17/25 10:00 01/17/25 10:09 17 GM Sennosides 8.6 mg QHSP PRN PO 01/17/25 07:45 Guaifenesin/ Dextromethorphan 30 ml Q8HPRN PRN PO 01/17/25 16:15 Doxycycline Hyclate 100 ml @ 50 mls/hr Q12H IV 01/17/25 16:45 Laboratory Results Laboratory Tests 01/17/25 03:46 Chemistry Test 01/17/25 03:46 Albumin 4.7 g/dL (3.2-4.8) Calcium Level 8.7 mg/dL (8.7-10.4) Magnesium Level 2.1 mg/dL (1.6-2.6) Total Protein 7.5 g/dL (5.7-8.2) Lipid panel Test 01/17/25 03:46 01/17/25 04:41 Cholesterol Level 125 mg/dL (< 200) HDL Cholesterol 28 mg/dL (40-59) L Triglycerides Level 187 mg/dL (< 150) H Lipase 38 U/L (12-53) Cardiac Markers Test 01/17/25 03:46 B-Type Natriuretic Peptide 15.40 pg/mL (0-100) LFT Test 01/17/25 03:46 Alanine Aminotransferase (ALT) 17 U/L (7-40) Alkaline Phosphatase 66 U/L (46-116) Aspartate Amino Transferase (AST) 28 U/L (13-40) Total Bilirubin 1.4 mg/dL (0.2-1.0) H HgA1c, TSH Test 01/17/25 03:46 Hemoglobin A1c 6.0 % A1C (<5.7) H Thyroid Stimulating Hormone (TSH) 0.58 uIU/mL (0.55-4.78) Urinalysis Test 01/17/25 07:45 Urine Color Colorless (Yellow) Urine Clarity Clear (Clear) Urine pH 6.5 (5.0-9.0) Urine Specific Ramona 1.005 (1.001-1.035) Urine Protein Negative (Negative) Urine Ketones Negative (Negative) Urine Blood Trace /uL (Negative) H Urine Nitrite Negative (Negative) Urine Bilirubin Negative (Negative) Urine Urobilinogen Normal mg/dL (Negative) Urine Leukocyte Esterase Negative /uL (Negative) Urine RBC <1 /hpf (0 - 4) Urine Microscopic WBC 1 /HPF (0-5) Urine Squamous Epithelial Cells None seen /hpf (<5) Urine Bacteria None seen /hpf (None Seen) Urine Glucose Normal mg/dL (Normal) Labs and/or images reviewed: Labs reviewed by me, Image(s) reviewed by me Assessment/Plan Assessment/Plan 01/17 - patient in ER, on oxygen maintaining saturations,. Blood pressure stable. Chest x-ray with left lung opacity very clearly visible. Given sepsis picture patient will likely benefit broad-spectrum IV antibiotics and deescalate thereafter. No COVID flu done, we will test. Acute hypoxic respiratory failure due to below Pneumonia Gram-negative Gram-positive likely Sepsis, due to above Chest pain due to above, ACS ruled out Pyrexia Leukocytosis Neutrophilia Tachycardia Tachypnea Flu /covid rule out Hyperbilirubinemia Hyponatremia Constipation History hyperlipidemia History hysterectomy - ceftriaxone doxycycline Nasal cannula oxygen continues with goal SpO2 > 90 Continue telemetry Regular diet DVT prophylaxis Lovenox 40 subQ daily GI prophylaxis Protonix 40 mg IV daily Chest pain protocol p.r.n. Full code Plan discussed with: Patient My Orders Orders - RENATO BOB MD Procedure Category Date Status Time Guaifenesin-Dextromet PHA 01/17/25 In Process Liquid (Robitussin 16:15 Doxycycline PHA 01/17/25 In Process 100mg/100ml 16:45 Date of Service: January 17, 2025 Billing Provider: RENATO BOB MD Common Visit Codes: [id number] INP/OBS CARE(HIGH) RENATO BOB MD January 17, 2025 17:46
[2025-01-17] MEDS: DOXYCYCLINE 100MG/100ML 100 ML IV SCH (18:08)
[2025-01-17] MEDS: guaiFENesin-DM 100/10mg/5ml SYR PO PRN (18:08)
[2025-01-17 20:21] LABS: Rapid Influenza A Negative (Negative); Rapid Influenza B Negative (Negative)
[2025-01-17 20:22] LABS: COVID19 ANTIGEN SOFIA FIA NEGATIVE (NEGATIVE)
[2025-01-17] MEDS: ATORVASTATIN 20 MG TAB PO SCH (21:23)
[2025-01-18] VITALS (8 sets, daily range): BP systolic 104–120; BP diastolic 51–78; PULSE 78–103; RESP 16–18; TEMP 98–99.4; O2SAT 96–100
[2025-01-18 07:37] LABS: Basophils # (auto) 0 10 ^3/uL (0-0.2); Basophils % (auto) 0.2 % (0.0-2.0); Eosinophils # (auto) 0 10 ^3/uL (0-0.8); Eosinophils % (auto) 0.3 % (0.0-7.0); Hematocrit 34.2 % (36.0-46.0); Hemoglobin 11.6 g/dL (12.2-16.2); Lymphocytes # (auto) 0.8 10 ^3/uL (0.4-5.4); Lymphocytes % (auto) 8.3 % (10.0-50.0); Mean Corpuscular Volume 85.4 fL (80.0-100.0); Monocytes # (auto) 0.3 10 ^3/uL (0-1.3); Neutrophils # (auto) 8.9 10 ^3/uL (1.6-8.6); Neutrophils % (auto) 88.2 % (37.0-80.0); Platelet Count (auto) 226 10^3/uL (140-450); Red Cell Distribution Width 13.8 % (11.8-14.3); White Blood Cell 10.1 10^3/uL (4.4-10.8)
[2025-01-18 07:56] LABS: Alanine Aminotransferase 12 U/L (7-40); Alkaline Phosphatase 65 U/L (46-116); Anion Gap 11 (5-15); Aspartate Aminotransferase 20 U/L (13-40); BUN/Creatinine Ratio 23.5 (10.0-20.0); Blood Urea Nitrogen 12 mg/dL (9-23); Calcium 9.4 mg/dL (8.7-10.4); Carbon Dioxide 21 mmol/L (20-31); Glucose 99 mg/dL (74-106); Magnesium 1.9 mg/dL (1.6-2.6); Potassium 3.5 mmol/L (3.5-5.1); Sodium 140 mmol/L (136-145); Total Protein 6.7 g/dL (5.7-8.2)
[2025-01-18 07:57] LABS: Bilirubin, Total 0.8 mg/dL (0.2-1.0)
[2025-01-18 08:07] LABS: Chloride 108 mmol/L (98-107)
[2025-01-18] MEDS: LACTATED RINGER'S 500 ML IV ONE (11:57)
[2025-01-18 13:43] LABS: Lactic Acid w/Reflex 2.6 mmol/L (0.4-2.0)
--- NOTE | 2025-01-18 18:06 | DVHPN2 ---
Subjective History of Present Illness Sara Calvo is a 64-year-old female with past medical history of hyperlipidemia and hysterectomy who presents to the ED with chest pain that started since Monday. She states that she was grocery shopping then came home when the pain suddenly started she states the pain is 6/10 squeezing in nature and intermittent. Patient endorses that chest pain comes about when she coughs. Patient also reports that she does not use home oxygen however upon examination she is on 3 L nasal cannula. Patient denies any recent trauma or injury, recent sick contacts, recent travels, recent ingestion of spoiled food, any productive phlegm, lightheadedness, weakness, dizziness, abdominal pain, nausea, vomiting, or diarrhea. Cardiovascular: hyperipidemia 01/17 - patient in ER, on oxygen maintaining saturations,. Blood pressure stable. Chest x-ray with left lung opacity very clearly visible. Given sepsis picture patient will likely benefit broad-spectrum IV antibiotics and deescalate thereafter. No COVID flu done, we will test. 01/18 - patient lactic acid is down trending but still above 2 we will continue to trend and give more fluids continue with broad-spectrum IV antibiotics. Patient is feeling improved. We will continue p.r.n. NT tussis. Left side long still has rhonchi. COVID flu negative. Low threshold to get CT chest. Keep close monitoring and continuing inpatient treatment as patient was severe sepsis picture on presentation Reviewed: H&P Changes from previous H/P or p: No Changes General: Per HPI Cardiovascular: Chest Pain Objective Vitals Vital Signs Date Time Temp Pulse Resp B/P (MAP) Pulse Ox O2 Delivery O2 Flow Rate FiO2 01/18/25 13:00 98.6 78 16 109/67 (81) 96 98.6 01/18/25 08:00 Nasal Cannula* 3 32 Intake/Output Intake and Output 01/18/25 07:00 Intake Total 1800 ml Output Total 600 ml Balance 1200 ml Intake Oral 1000 ml IV Total 800 ml Output Urine Total 600 ml # Voids 1 Exam GEN: Healthy appearing, well-developed, mild distress HEENT: NC/AT; MMM. CV: RRR, no m/r/g. LUNGS: Rhonchi left lower lobe/left middle lobe, on oxygen 3 L nasal cannula ABD: Soft, NT/ND, NBS, no masses or organomegaly. EXT: skin Warm, well perfused. no rashes. No clubbing, cyanosis, or edema. NEURO: Ambulating with no limitations. No focal deficits. Medications Current Medications Medications Dose Ordered Sig/Prisca Route Start Time Stop Time Status Last Admin Dose Admin Ceftriaxone Sodium 50 ml @ 100 mls/hr DAILY@09 IV 01/17/25 09:00 01/18/25 08:39 100 MLS/HR Aspirin 81 mg DAILY PO 01/17/25 10:00 01/18/25 08:58 81 MG Atorvastatin Calcium 40 mg HS PO 01/17/25 22:00 01/17/25 21:23 40 MG Carvedilol 6.25 mg Q12HR PO 01/17/25 10:00 01/18/25 08:57 6.25 MG Morphine Sulfate 2 mg Q30MP PRN IV 01/17/25 07:30 Acetaminophen 650 mg Q6HP PRN PO 01/17/25 07:30 Nitroglycerin 0.4 mg Q5MINP PRN SL 01/17/25 07:30 Ondansetron HCl 4 mg Q4HP PRN IV 01/17/25 07:30 Nitroglycerin 0.4 mg Q5MINP PRN SL 01/17/25 07:30 Morphine Sulfate 2 mg Q30M PRN IV 01/17/25 07:30 Patient Own Medication 1 tab DAILY PO 01/17/25 10:00 Polyethylene Glycol 17 gm DAILY PO 01/17/25 10:00 01/18/25 08:39 17 GM Sennosides 8.6 mg QHSP PRN PO 01/17/25 07:45 Doxycycline Hyclate 100 ml @ 50 mls/hr Q12H IV 01/17/25 16:45 01/18/25 16:33 50 MLS/HR Guaifenesin/ Dextromethorphan 20 ml Q8HPRN PRN PO 01/17/25 17:45 01/17/25 18:08 20 ML Laboratory Results Laboratory Tests 01/18/25 06:21 Chemistry Test 01/18/25 06:21 Albumin 4.0 g/dL (3.2-4.8) Calcium Level 9.4 mg/dL (8.7-10.4) Magnesium Level 1.9 mg/dL (1.6-2.6) Total Protein 6.7 g/dL (5.7-8.2) LFT Test 01/18/25 06:21 Alanine Aminotransferase (ALT) 12 U/L (7-40) Alkaline Phosphatase 65 U/L (46-116) Aspartate Amino Transferase (AST) 20 U/L (13-40) Total Bilirubin 0.8 mg/dL (0.2-1.0) Urinalysis Test 01/17/25 07:45 Urine Color Colorless (Yellow) Urine Clarity Clear (Clear) Urine pH 6.5 (5.0-9.0) Urine Specific [place] 1.005 (1.001-1.035) Urine Protein Negative (Negative) Urine Ketones Negative (Negative) Urine Blood Trace /uL (Negative) H Urine Nitrite Negative (Negative) Urine Bilirubin Negative (Negative) Urine Urobilinogen Normal mg/dL (Negative) Urine Leukocyte Esterase Negative /uL (Negative) Urine RBC <1 /hpf (0 - 4) Urine Microscopic WBC 1 /HPF (0-5) Urine Squamous Epithelial Cells None seen /hpf (<5) Urine Bacteria None seen /hpf (None Seen) Urine Glucose Normal mg/dL (Normal) Microbiology Microbiology Date/Time Source Procedure Growth Status 01/17/25 07:45 Voided Urine Urine Culture - Preliminary Resulted 01/17/25 04:41 Blood Blood Culture - Preliminary NO GROWTH AFTER 24 HOURS OF INCUBATION. Resulted Labs and/or images reviewed: Labs reviewed by me, Image(s) reviewed by me Assessment/Plan Assessment/Plan 01/18 - patient lactic acid is down trending but still above 2 we will continue to trend and give more fluids continue with broad-spectrum IV antibiotics. Patient is feeling improved. We will continue p.r.n. NT tussis. Left side long still has rhonchi. COVID flu negative. Low threshold to get CT chest. Keep close monitoring and continuing inpatient treatment as patient was severe sepsis picture on presentation Acute hypoxic respiratory failure due to below Pneumonia Gram-negative Gram-positive likely Sepsis, due to above Chest pain due to above, ACS ruled out Pyrexia Leukocytosis Neutrophilia Tachycardia Tachypnea Flu /covid rule out Hyperbilirubinemia Hyponatremia Constipation History hyperlipidemia History hysterectomy - ceftriaxone doxycycline Nasal cannula oxygen continues with goal SpO2 > 90 Continue telemetry Regular diet DVT prophylaxis Lovenox 40 subQ daily GI prophylaxis Protonix 40 mg IV daily Chest pain protocol p.r.n. Full code Plan discussed with: Patient My Orders Orders - RENATO BOB MD Procedure Category Date Status Time Lactic Acid W/ Reflex LAB 01/19/25 Verified Order 04:00 Lactated Ringer's PHA 01/18/25 In Process 20:00 Date of Service: January 18, 2025 Billing Provider: RENATO BOB MD Common Visit Codes: [id number] INP/OBS CARE(HIGH) RENATO BOB MD January 18, 2025 18:06
[2025-01-18] MEDS: LACTATED RINGER'S 1,000 ML IV ONE (22:28)
[2025-01-19] VITALS (7 sets, daily range): BP systolic 106–130; BP diastolic 57–70; PULSE 71–94; RESP 16–20; TEMP 97.8–98.8; O2SAT 92–99
--- NOTE | 2025-01-19 02:14 | DVHSR ---
APPROVED REPORT EXAM: Two-dimensional and M-mode echocardiogram with Doppler and color Doppler. Blood Pressure: 120/82 mmHg INDICATION Chest Pain RISK FACTORS Height: 62, Weight: 118 DIMENSIONS LVDd4.3 (3.8-5.7cm)LA (2D)3.8 (1.9-4.0cm)Aortic Root3.0 (2.0-3.7cm) LVDs2.5 (2.5-4.0cm)LA (MM) (1.9-4.0cm)Aortic Cusp Exc1.6 (1.5-2.0cm) EF (%) 75.0 (55-70%)Rt. Atrium3.6 (1.9-4.0cm)Asc. Aorta cm IVSd1.3 (0.7-1.1cm)RV (D) (1.8-2.4cm) PWd1.1 (0.7-1.1cm) Mitral Valve MitralMitral Stenosis E wave1.02m/sMV Mean GR.mmHg A wave0.96m/sMV Peak GR.56mmHg E/A ratio1.12D MVAcm2 DECEL [id number] 1/2 [id number] IVRTmsDop MVA5.92cm2 Aortic Valve Aortic ValveAortic Stenosis V11.25m/[place] Mean GR.5mmHg V21.54m/[place] Peak GR.9mmHg LVOT Diameter1.9 (1.8-2.4cm)Doppler AVA2.30cm2 Pulmonic Valve V20.84m/s Tricuspid Valve TR Velocity2.42m/s [id number] Conclusion NORMAL LV EF AND IS 70% NORMAL VALVES NORMAL RV FUNCTION AND SIZE NO EFFUSION
[2025-01-19 07:05] LABS: Basophils # (auto) 0 10 ^3/uL (0-0.2); Basophils % (auto) 0.3 % (0.0-2.0); Eosinophils # (auto) 0.1 10 ^3/uL (0-0.8); Eosinophils % (auto) 0.9 % (0.0-7.0); Hematocrit 33.3 % (36.0-46.0); Hemoglobin 11.5 g/dL (12.2-16.2); Lymphocytes # (auto) 1.1 10 ^3/uL (0.4-5.4); Lymphocytes % (auto) 16.6 % (10.0-50.0); Mean Corpuscular Hemoglobin 29.1 pg (28.0-32.0); Mean Corpuscular Hgb Conc. 34.5 g/dL (32.0-36.0); Mean Corpuscular Volume 84.5 fL (80.0-100.0); Monocytes # (auto) 0.6 10 ^3/uL (0-1.3); Monocytes % (auto) 10.2 % (0.0-12.0); Neutrophils # (auto) 4.6 10 ^3/uL (1.6-8.6); Platelet Count (auto) 261 10^3/uL (140-450); Red Blood Cells 3.94 10^6/uL (4.0-5.20); Red Cell Distribution Width 13.6 % (11.8-14.3); White Blood Cell 6.3 10^3/uL (4.4-10.8)
[2025-01-19 07:32] LABS: Alanine Aminotransferase 21 U/L (7-40); Alkaline Phosphatase 50 U/L (46-116); Anion Gap 13 (5-15); BUN/Creatinine Ratio 17.4 (10.0-20.0); Calcium 9.5 mg/dL (8.7-10.4); Carbon Dioxide 22 mmol/L (20-31); Chloride 106 mmol/L (98-107); Glucose 83 mg/dL (74-106); Sodium 141 mmol/L (136-145); Total Protein 6.6 g/dL (5.7-8.2)
[2025-01-19 07:33] LABS: Aspartate Aminotransferase 25 U/L (13-40); Bilirubin, Total 0.7 mg/dL (0.2-1.0)
[2025-01-19 07:34] LABS: Blood Urea Nitrogen 8 mg/dL (9-23); Potassium 3.3 mmol/L (3.5-5.1)
--- NOTE | 2025-01-19 15:46 | DVHPN2 ---
Subjective History of Present Illness Sara Calvo is a 64-year-old female with past medical history of hyperlipidemia and hysterectomy who presents to the ED with chest pain that started since Monday. She states that she was grocery shopping then came home when the pain suddenly started she states the pain is 6/10 squeezing in nature and intermittent. Patient endorses that chest pain comes about when she coughs. Patient also reports that she does not use home oxygen however upon examination she is on 3 L nasal cannula. Patient denies any recent trauma or injury, recent sick contacts, recent travels, recent ingestion of spoiled food, any productive phlegm, lightheadedness, weakness, dizziness, abdominal pain, nausea, vomiting, or diarrhea. Cardiovascular: hyperipidemia 01/17 - patient in ER, on oxygen maintaining saturations,. Blood pressure stable. Chest x-ray with left lung opacity very clearly visible. Given sepsis picture patient will likely benefit broad-spectrum IV antibiotics and deescalate thereafter. No COVID flu done, we will test. 01/18 - patient lactic acid is down trending but still above 2 we will continue to trend and give more fluids continue with broad-spectrum IV antibiotics. Patient is feeling improved. We will continue p.r.n. NT tussis. Left side long still has rhonchi. COVID flu negative. Low threshold to get CT chest. Keep close monitoring and continuing inpatient treatment as patient was severe sepsis picture on presentation 01/19 patient continues to improve but still complaining of significant cough. WBC count continues to improve. Leukocytosis resolved today. Mild hypokalemia will be repleted p.o.. Lactic acid is back to 1.0 normal limit. Flu COVID negative. Continue antibiotics IV. Significant cough, we will try Phenergan codeine syrup. Reviewed: H&P Changes from previous H/P or p: No Changes General: Per HPI Cardiovascular: Chest Pain Objective Vitals Vital Signs Date Time Temp Pulse Resp B/P (MAP) Pulse Ox O2 Delivery O2 Flow Rate FiO2 01/19/25 09:46 72 141/74 01/19/25 08:00 16 93 Nasal Cannula* 3 32 01/19/25 05:00 98.8 98.8 Intake/Output Intake and Output 01/19/25 07:00 Intake Total 1850 ml Balance 1850 ml Intake Oral 1200 ml IV Total 650 ml # Voids 6 Exam GEN: Healthy appearing, well-developed, mild distress HEENT: NC/AT; MMM. CV: RRR, no m/r/g. LUNGS: Rhonchi left lower lobe/left middle lobe, on oxygen 3 L nasal cannula ABD: Soft, NT/ND, NBS, no masses or organomegaly. EXT: skin Warm, well perfused. no rashes. No clubbing, cyanosis, or edema. NEURO: Ambulating with no limitations. No focal deficits. Medications Current Medications Medications Dose Ordered Sig/Prisca Route Start Time Stop Time Status Last Admin Dose Admin Ceftriaxone Sodium 50 ml @ 100 mls/hr DAILY@09 IV 01/17/25 09:00 01/19/25 08:42 100 MLS/HR Aspirin 81 mg DAILY PO 01/17/25 10:00 01/19/25 08:43 81 MG Atorvastatin Calcium 40 mg HS PO 01/17/25 22:00 01/18/25 22:24 40 MG Carvedilol 6.25 mg Q12HR PO 01/17/25 10:00 01/19/25 08:46 6.25 MG Morphine Sulfate 2 mg Q30MP PRN IV 01/17/25 07:30 Acetaminophen 650 mg Q6HP PRN PO 01/17/25 07:30 Nitroglycerin 0.4 mg Q5MINP PRN SL 01/17/25 07:30 Ondansetron HCl 4 mg Q4HP PRN IV 01/17/25 07:30 Nitroglycerin 0.4 mg Q5MINP PRN SL 01/17/25 07:30 Morphine Sulfate 2 mg Q30M PRN IV 01/17/25 07:30 Patient Own Medication 1 tab DAILY PO 01/17/25 10:00 Polyethylene Glycol 17 gm DAILY PO 01/17/25 10:00 01/18/25 08:39 17 GM Sennosides 8.6 mg QHSP PRN PO 01/17/25 07:45 Doxycycline Hyclate 100 ml @ 50 mls/hr Q12H IV 01/17/25 16:45 01/19/25 04:06 50 MLS/HR Guaifenesin/ Dextromethorphan 20 ml Q8HPRN PRN PO 01/17/25 17:45 01/19/25 09:01 20 ML Laboratory Results Laboratory Tests 01/19/25 05:52 Chemistry Test 01/19/25 05:52 Albumin 4.0 g/dL (3.2-4.8) Calcium Level 9.5 mg/dL (8.7-10.4) Total Protein 6.6 g/dL (5.7-8.2) LFT Test 01/19/25 05:52 Alanine Aminotransferase (ALT) 21 U/L (7-40) Alkaline Phosphatase 50 U/L (46-116) Aspartate Amino Transferase (AST) 25 U/L (13-40) Total Bilirubin 0.7 mg/dL (0.2-1.0) Urinalysis Test 01/17/25 07:45 Urine Color Colorless (Yellow) Urine Clarity Clear (Clear) Urine pH 6.5 (5.0-9.0) Urine Specific [place] 1.005 (1.001-1.035) Urine Protein Negative (Negative) Urine Ketones Negative (Negative) Urine Blood Trace /uL (Negative) H Urine Nitrite Negative (Negative) Urine Bilirubin Negative (Negative) Urine Urobilinogen Normal mg/dL (Negative) Urine Leukocyte Esterase Negative /uL (Negative) Urine RBC <1 /hpf (0 - 4) Urine Microscopic WBC 1 /HPF (0-5) Urine Squamous Epithelial Cells None seen /hpf (<5) Urine Bacteria None seen /hpf (None Seen) Urine Glucose Normal mg/dL (Normal) Microbiology Microbiology Date/Time Source Procedure Growth Status 01/17/25 07:45 Voided Urine Urine Culture - Final Complete 01/17/25 04:41 Blood Blood Culture - Preliminary NO GROWTH AFTER 48 HOURS OF INCUBATION. Resulted Labs and/or images reviewed: Labs reviewed by me, Image(s) reviewed by me Assessment/Plan Assessment/Plan 01/19 patient continues to improve but still complaining of significant cough. WBC count continues to improve. Leukocytosis resolved today. Mild hypokalemia will be repleted p.o.. Lactic acid is back to 1.0 normal limit. Flu COVID negative. Continue antibiotics IV. Significant cough, we will try Phenergan codeine syrup. Acute hypoxic respiratory failure due to below Pneumonia Gram-negative Gram-positive likely Sepsis, due to above Chest pain due to above, ACS ruled out Pyrexia Leukocytosis Neutrophilia Tachycardia Tachypnea Flu /covid rule out Hyperbilirubinemia Hyponatremia Constipation History hyperlipidemia History hysterectomy - ceftriaxone doxycycline Nasal cannula oxygen continues with goal SpO2 > 90 Continue telemetry Regular diet DVT prophylaxis Lovenox 40 subQ daily GI prophylaxis Protonix 40 mg IV daily Chest pain protocol p.r.n. Full code Plan discussed with: Patient, Other Date of Service: January 19, 2025 Billing Provider: RENATO BOB MD Common Visit Codes: [id number] INP/OBS CARE(HIGH) RENATO BOB MD January 19, 2025 15:46
[2025-01-19] MEDS ORDERED: POTASSIUM EFFERVESENT TAB 25 MEQ GT ONE (16:00)
[2025-01-19] MEDS: POTASSIUM EFFERVESENT TAB 25 MEQ PO ONE (17:20)
[2025-01-19] MEDS: PROMETHAZINE W/CODEINE 5 ML ORAL SYRUP PO PRN (17:21)
[2025-01-20] VITALS (8 sets, daily range): BP systolic 99–133; BP diastolic 52–83; PULSE 82–107; RESP 17–18; TEMP 98–99; O2SAT 90–96
[2025-01-20 07:49] LABS: Hematocrit 35.8 % (36.0-46.0); Hemoglobin 12.4 g/dL (12.2-16.2); Mean Corpuscular Hemoglobin 29.3 pg (28.0-32.0); Mean Corpuscular Hgb Conc. 34.7 g/dL (32.0-36.0); Mean Corpuscular Volume 84.4 fL (80.0-100.0); Platelet Count (auto) 323 10^3/uL (140-450); Red Blood Cells 4.24 10^6/uL (4.0-5.20); Red Cell Distribution Width 13.4 % (11.8-14.3); White Blood Cell 8.1 10^3/uL (4.4-10.8)
[2025-01-20 07:50] LABS: Chloride 101 mmol/L (98-107); Sodium 138 mmol/L (136-145)
[2025-01-20 07:51] LABS: Anion Gap 14 (5-15); Calcium 10.1 mg/dL (8.7-10.4); Carbon Dioxide 23 mmol/L (20-31)
[2025-01-20 07:56] LABS: BUN/Creatinine Ratio 18.4 (10.0-20.0); Blood Urea Nitrogen 9 mg/dL (9-23); Glucose 103 mg/dL (74-106); Potassium 3.3 mmol/L (3.5-5.1)
[2025-01-20 08:05] LABS: Basophils % (manual) 0 (0.0-2.0); Blast Cells 0; Promyelocytes % 0; Reactive Lymphocytes 0
[2025-01-20 10:43] LABS: Band Neutrophils % (manual) 6; Eosinophils % (manual) 1 (0-7); Lymphocytes % (manual) 13 (10.0-50.0); Metamyelocytes % 2; Monocytes % (manual) 9 (0-12); Myelocytes % 1
[2025-01-20 10:44] LABS: Platelet Estimate Adequate
--- NOTE | 2025-01-20 12:53 | ECG ---
[facility] Test Date: 2025-01-17 Test Time: 03:46:05 Pat Name: JULIANNA GUZMAN [facility] F Maternal Fetal Physician: LUZ : 1960 Requested By: MANDEEP FAITH Order Number: [id number] Reading MD: Ahsan Casanova Measurements Intervals [place] Rate: 117 P: 65 AL: 119 QRS: 70 QRSD: 92 T: 17 QT: 451 QTc: 630 Interpretive Statements Sinus tachycardia Consider right atrial enlargement Consider left ventricular hypertrophy Prolonged QT interval Electronically Signed On 01-22-2025 12:07:17 PDT by Ahsan Casanova Please click the below link to view image of tracing.
--- NOTE | 2025-01-20 14:01 | DVHPN2 ---
Subjective History of Present Illness Sara Calvo is a 64-year-old female with past medical history of hyperlipidemia and hysterectomy who presents to the ED with chest pain that started since Monday. She states that she was grocery shopping then came home when the pain suddenly started she states the pain is 6/10 squeezing in nature and intermittent. Patient endorses that chest pain comes about when she coughs. Patient also reports that she does not use home oxygen however upon examination she is on 3 L nasal cannula. Patient denies any recent trauma or injury, recent sick contacts, recent travels, recent ingestion of spoiled food, any productive phlegm, lightheadedness, weakness, dizziness, abdominal pain, nausea, vomiting, or diarrhea. Cardiovascular: hyperipidemia 01/17 - patient in ER, on oxygen maintaining saturations,. Blood pressure stable. Chest x-ray with left lung opacity very clearly visible. Given sepsis picture patient will likely benefit broad-spectrum IV antibiotics and deescalate thereafter. No COVID flu done, we will test. 01/18 - patient lactic acid is down trending but still above 2 we will continue to trend and give more fluids continue with broad-spectrum IV antibiotics. Patient is feeling improved. We will continue p.r.n. NT tussis. Left side long still has rhonchi. COVID flu negative. Low threshold to get CT chest. Keep close monitoring and continuing inpatient treatment as patient was severe sepsis picture on presentation 01/19 patient continues to improve but still complaining of significant cough. WBC count continues to improve. Leukocytosis resolved today. Mild hypokalemia will be repleted p.o.. Lactic acid is back to 1.0 normal limit. Flu COVID negative. Continue antibiotics IV. Significant cough, we will try Phenergan codeine syrup. 01/20 - cough improving with Phenergan codeine syrup for p.r.n. cough. Still having the cough and still has rhonchi in left middle left lower bases. Continuing IV antibiotic treatment. No further tachycardia or febrile episodes. Patient has complicated pneumonia and still on oxygen . We will continue IV antibiotics and they try weaning off oxygen Reviewed: H&P Changes from previous H/P or p: No Changes General: Per HPI Cardiovascular: Chest Pain Objective Vitals Vital Signs Date Time Temp Pulse Resp B/P (MAP) Pulse Ox O2 Delivery O2 Flow Rate FiO2 01/20/25 09:53 82 127/83 01/20/25 08:40 98.1 17 94 98.1 01/19/25 20:00 Nasal Cannula* 3 32 Intake/Output Intake and Output 01/20/25 07:00 Intake Total 650 ml Balance 650 ml Intake Oral 400 ml IV Total 250 ml # Voids 1 Exam GEN: Healthy appearing, well-developed, mild distress HEENT: NC/AT; MMM. CV: RRR, no m/r/g. LUNGS: Rhonchi left lower lobe/left middle lobe, on oxygen 3 L nasal cannula ABD: Soft, NT/ND, NBS, no masses or organomegaly. EXT: skin Warm, well perfused. no rashes. No clubbing, cyanosis, or edema. NEURO: Ambulating with no limitations. No focal deficits. Medications Current Medications Medications Dose Ordered Sig/Prisca Route Start Time Stop Time Status Last Admin Dose Admin Ceftriaxone Sodium 50 ml @ 100 mls/hr DAILY@09 IV 01/17/25 09:00 01/20/25 09:52 100 MLS/HR Aspirin 81 mg DAILY PO 01/17/25 10:00 01/20/25 09:53 81 MG Atorvastatin Calcium 40 mg HS PO 01/17/25 22:00 01/19/25 22:27 40 MG Carvedilol 6.25 mg Q12HR PO 01/17/25 10:00 01/20/25 09:53 6.25 MG Morphine Sulfate 2 mg Q30MP PRN IV 01/17/25 07:30 Acetaminophen 650 mg Q6HP PRN PO 01/17/25 07:30 Nitroglycerin 0.4 mg Q5MINP PRN SL 01/17/25 07:30 Ondansetron HCl 4 mg Q4HP PRN IV 01/17/25 07:30 Nitroglycerin 0.4 mg Q5MINP PRN SL 01/17/25 07:30 Morphine Sulfate 2 mg Q30M PRN IV 01/17/25 07:30 Patient Own Medication 1 tab DAILY PO 01/17/25 10:00 Polyethylene Glycol 17 gm DAILY PO 01/17/25 10:00 01/18/25 08:39 17 GM Sennosides 8.6 mg QHSP PRN PO 01/17/25 07:45 Doxycycline Hyclate 100 ml @ 50 mls/hr Q12H IV 01/17/25 16:45 01/20/25 04:31 50 MLS/HR Promethazine HCl/ Codeine 5 ml Q4HP PRN PO 01/19/25 15:45 01/20/25 09:54 5 ML Laboratory Results Laboratory Tests 01/20/25 06:42 Chemistry Test 01/20/25 06:42 Calcium Level 10.1 mg/dL (8.7-10.4) Urinalysis Test 01/17/25 07:45 Urine Color Colorless (Yellow) Urine Clarity Clear (Clear) Urine pH 6.5 (5.0-9.0) Urine Specific [place] 1.005 (1.001-1.035) Urine Protein Negative (Negative) Urine Ketones Negative (Negative) Urine Blood Trace /uL (Negative) H Urine Nitrite Negative (Negative) Urine Bilirubin Negative (Negative) Urine Urobilinogen Normal mg/dL (Negative) Urine Leukocyte Esterase Negative /uL (Negative) Urine RBC <1 /hpf (0 - 4) Urine Microscopic WBC 1 /HPF (0-5) Urine Squamous Epithelial Cells None seen /hpf (<5) Urine Bacteria None seen /hpf (None Seen) Urine Glucose Normal mg/dL (Normal) Microbiology Microbiology Date/Time Source Procedure Growth Status 01/17/25 07:45 Voided Urine Urine Culture - Final Complete 01/17/25 04:41 Blood Blood Culture - Preliminary NO GROWTH AFTER 72 HOURS OF INCUBATION. Resulted Labs and/or images reviewed: Labs reviewed by me, Image(s) reviewed by me Assessment/Plan Assessment/Plan 01/20 - cough improving with Phenergan codeine syrup for p.r.n. cough. Still having the cough and still has rhonchi in left middle left lower bases. Continuing IV antibiotic treatment. No further tachycardia or febrile episodes. Patient has complicated pneumonia and still on oxygen . We will continue IV antibiotics and they try weaning off oxygen Acute hypoxic respiratory failure due to below Pneumonia Gram-negative Gram-positive likely Sepsis, due to above Chest pain due to above, ACS ruled out Pyrexia Leukocytosis Neutrophilia Tachycardia Tachypnea Flu /covid rule out Hyperbilirubinemia Hyponatremia Constipation History hyperlipidemia History hysterectomy - ceftriaxone doxycycline Nasal cannula oxygen continues with goal SpO2 > 90 Continue telemetry Regular diet DVT prophylaxis Lovenox 40 subQ daily GI prophylaxis Protonix 40 mg IV daily Chest pain protocol p.r.n. Full code Plan discussed with: Patient My Orders Orders - RENATO BOB MD Procedure Category Date Status Time Promethazine PHA 01/19/25 In Process W/Codeine (Phenergan 15:45 Date of Service: January 20, 2025 Billing Provider: RENATO BOB MD Common Visit Codes: [id number] INP/OBS CARE(HIGH) RENATO BOB MD January 20, 2025 14:01
[2025-01-20] MEDS: DOXYCYCLINE 100 MG TAB/CAP PO SCH (21:30)
[2025-01-21] VITALS (7 sets, daily range): BP systolic 87–114; BP diastolic 46–75; PULSE 71–93; RESP 17–20; TEMP 97.7–98.6; O2SAT 90–95
[2025-01-21 06:42] LABS: Hematocrit 35.7 % (36.0-46.0); Hemoglobin 12.2 g/dL (12.2-16.2); Mean Corpuscular Hgb Conc. 34.2 g/dL (32.0-36.0); Mean Corpuscular Volume 84.9 fL (80.0-100.0); Platelet Count (auto) 416 10^3/uL (140-450); Red Cell Distribution Width 13.4 % (11.8-14.3); White Blood Cell 8.9 10^3/uL (4.4-10.8)
[2025-01-21 07:09] LABS: Basophils % (manual) 0 (0.0-2.0); Blast Cells 0; Metamyelocytes % 0; Promyelocytes % 0; Reactive Lymphocytes 0
[2025-01-21 09:03] LABS: Band Neutrophils % (manual) 2; Eosinophils % (manual) 2 (0-7); Lymphocytes % (manual) 21 (10.0-50.0); Monocytes % (manual) 16 (0-12); Myelocytes % 2; Platelet Estimate Adequate
--- NOTE | 2025-01-21 10:30 | DVHDS2 ---
Discharge Summary Date of Admission January 17, 2025 at 07:29 Date of Discharge: January 21, 2025 Labs/Diagnostic Data: Laboratory Results Test 01/21/25 04:57 01/20/25 06:42 01/19/25 05:52 01/18/25 06:21 White Blood Count 8.9 10^3/uL (4.4-10.8) Red Blood Count 4.20 10^6/uL (4.0-5.20) Hemoglobin 12.2 g/dL (12.2-16.2) Hematocrit 35.7 % (36.0-46.0) Mean Corpuscular Volume 84.9 fL (80.0-100.0) Mean Corpuscular Hemoglobin 29.0 pg (28.0-32.0) Mean Corpuscular Hemoglobin Concent 34.2 g/dL (32.0-36.0) Red Cell Distribution Width 13.4 % (11.8-14.3) Platelet Count 416 10^3/uL (140-450) Mean Platelet Volume 7.0 fL (6.9-10.8) Neutrophils (%) (Auto) % (37.0-80.0) Lymphocytes (%) (Auto) % (10.0-50.0) Monocytes (%) (Auto) % (0.0-12.0) Basophils (%) (Auto) % (0.0-2.0) Neutrophils # (Auto) 10 ^3/uL (1.6-8.6) Lymphocytes # (Auto) 10 ^3/uL (0.4-5.4) Monocytes # (Auto) 10 ^3/uL (0-1.3) Differential Total Cells Counted 100.0 (100) Neutrophils % (Manual) 57 (37.0-80.0) Band Neutrophils % (Manual) 2 Lymphocytes % (Manual) 21 (10.0-50.0) Monocytes % (Manual) 16 (0-12) Eosinophils % (Manual) 2 (0-7) Basophils % (Manual) 0 (0.0-2.0) Metamyelocytes % (manual) 0 Myelocytes % (Manual) 2 Promyelocytes % (Manual) 0 Blast Cells % (Manual) 0 Reactive Lymphocytes 0 Platelet Estimate Adequate Sodium Level 138 mmol/L (136-145) Potassium Level 3.3 mmol/L (3.5-5.1) Chloride Level 101 mmol/L (98-107) Carbon Dioxide Level 23 mmol/L (20-31) Anion Gap 14 (5-15) Blood Urea Nitrogen 9 mg/dL (9-23) Creatinine 0.49 mg/dL (0.550-1.02) Glomerular Filtration Rate Calc 107 mL/min (>90) BUN/Creatinine Ratio 18.4 (10.0-20.0) Serum Glucose 103 mg/dL (74-106) Calcium Level 10.1 mg/dL (8.7-10.4) Eosinophils (%) (Auto) 0.9 % (0.0-7.0) Eosinophils # (Auto) 0.1 10 ^3/uL (0-0.8) Basophils # (Auto) 0 10 ^3/uL (0-0.2) Nucleated Red Blood Cells 0.0 % Lactic Acid Level 1.0 mmol/L (0.4-2.0) Total Bilirubin 0.7 mg/dL (0.2-1.0) Aspartate Amino Transferase (AST) 25 U/L (13-40) Alanine Aminotransferase (ALT) 21 U/L (7-40) Alkaline Phosphatase 50 U/L (46-116) Total Protein 6.6 g/dL (5.7-8.2) Albumin 4.0 g/dL (3.2-4.8) Magnesium Level 1.9 mg/dL (1.6-2.6) Test 01/17/25 18:50 01/17/25 07:45 01/17/25 06:55 01/17/25 04:41 Influenza Type A Antigen Negative (Negative) Influenza Type B Antigen Negative (Negative) SARS-CoV-2 Antigen (Rapid) Negative (NEGATIVE) Urine Color Colorless (Yellow) Urine Clarity Clear (Clear) Urine pH 6.5 (5.0-9.0) Urine Specific [place] 1.005 (1.001-1.035) Urine Protein Negative (Negative) Urine Ketones Negative (Negative) Urine Blood Trace /uL (Negative) Urine Nitrite Negative (Negative) Urine Bilirubin Negative (Negative) Urine Urobilinogen Normal mg/dL (Negative) Urine Leukocyte Esterase Negative /uL (Negative) Urine RBC <1 /hpf (0 - 4) Urine Microscopic WBC 1 /HPF (0-5) Urine Squamous Epithelial Cells None seen /hpf (<5) Urine Bacteria None seen /hpf (None Seen) Urine Glucose Normal mg/dL (Normal) Urine Opiates Screen Neg (NEGATIVE) Urine Fentanyl Screen Neg (NEGATIVE) Urine Barbiturates Screen Neg (NEGATIVE) Urine Phencyclidine Screen Neg (NEGATIVE) Urine Amphetamines Screen Neg (NEGATIVE) Urine Benzodiazepines Screen Neg (NEGATIVE) Urine Cocaine Screen Neg (NEGATIVE) Urine Cannabinoids Screen Neg (NEGATIVE) Troponin I High Sensitivity 4 ng/L (</=34) Lipase 38 U/L (12-53) Test 01/17/25 04:18 01/17/25 03:46 POC Glucose 120 mg/dl (70-106) Hemoglobin A1c 6.0 % A1C (<5.7) B-Type Natriuretic Peptide 15.40 pg/mL (0-100) Triglycerides Level 187 mg/dL (< 150) Cholesterol Level 125 mg/dL (< 200) LDL Cholesterol 48 mg/dL (< 100) HDL Cholesterol 28 mg/dL (40-59) Thyroid Stimulating Hormone (TSH) 0.58 uIU/mL (0.55-4.78) Other Laboratory Tests 01/21/25 04:57 01/20/25 06:42 Brief Hx & Hospital Course: HPI: 64-year-old female with past medical history of hyperlipidemia and hysterectomy who presents to the ED with chest pain that started since Monday. She states that she was grocery shopping then came home when the pain suddenly started she states the pain is 6/10 squeezing in nature and intermittent. Patient endorses that chest pain comes about when she coughs. Patient also reports that she does not use home oxygen however upon examination she is on 3 L nasal cannula. Patient denies any recent trauma or injury, recent sick contacts, recent travels, recent ingestion of spoiled food, any productive phlegm, lightheadedness, weakness, dizziness, abdominal pain, nausea, vomiting, or diarrhea. Summary: Patient presented with cough shortness of breath, fevers chills. CXR finding left middle lobe left lower lobe opacity. Patient also had productive sputum and significant cough causing p.o. intolerance. Started on antibiotics ceftriaxone doxy. Patient continues to improve. Lactic acidosis resolving leukocytosis and neutrophilia resolving. Patient requiring Robitussin then Phenergan codeine to control cough. 01/21 patient is improved, wean off oxygen, requiring less p.r.n. cough syrup, able to talk full sentences and feeling improved and ready for discharge home as per plan below Discharge plan: - continuous oxygen. follow-up with PCP to review ongoing need - doxycycline 100 mg b.i.d. x 7 days - [id number] cough and cold medications okay to use - conservative home remedies, including warm fluids, soups - continue other home medications not mentioned above (aspirin, Coreg, Lipitor) - follow up with PCP to review discharge. 1-2 week. diagnosis: Acute hypoxic respiratory failure due to below Pneumonia Gram-negative Gram-positive likely Sepsis, due to above Chest pain due to above, ACS ruled out Pyrexia, resolved Leukocytosis, resolved Neutrophilia , resolved Tachycardia , resolved Tachypnea , resolved Flu /covid ruled out Hyperbilirubinemia, resolved Hyponatremia Constipation History hyperlipidemia History hysterectomy Condition at Discharge: Fair Final Diagnosis/Problems List Acute hypoxic respiratory failure due to below Pneumonia Gram-negative Gram-positive likely Sepsis, due to above Chest pain due to above, ACS ruled out Pyrexia, resolved Leukocytosis, resolved Neutrophilia , resolved Tachycardia , resolved Tachypnea , resolved Flu /covid ruled out Hyperbilirubinemia, resolved Hyponatremia Constipation History hyperlipidemia History hysterectomy Discharge Disposition: Home Discharge Statement: "Patient was advised to return to the ER or call 911 if any headaches, dizziness, shortness of breath, chest pain, abdominal pain, bleeding, fevers, or worsening of medical condition. Patient was counseled about treatment plan, medications, possible side effects, patient�verbalized understanding. All questions were answered to the best of my ability. This discharge took greater then 30 minutes in planning, reviewing documentation, counseling the patient, and discussing with other team members." ASSESSMENT ASSESSMENT Assessment Date of Service: January 21, 2025 Billing Provider: RENATO BOB MD Common Visit Codes: 99219-DFC/OBS DISCH DAY >30min RENATO BOB MD January 21, 2025 10:30
[2025-01-21 14:35] LABS: Base Excess 1.4 mmol/L (-2.0-3.0)
[2025-01-21] MEDS ORDERED: DOXY100C79 PO (15:20)
[2025-01-21] MEDS: ACETAMINOPHEN 325 MG TAB PO PRN (16:30)
== END 2025-01-21 19:15 | disposition home or self-care (01) | DRG 871 ==
LOC: ER 03:38 → OVERFLOW 07:29 → TELE-WESTW 13:38
PROVIDERS: ADMIT Student in an Organized Health Care Education/Training Program; ATTEND Student in an Organized Health Care Education/Training Program
DX: A41.50 Gram-negative sepsis, unspecified (principal); J15.69 Pneumonia due to other Gram-negative bacteria; J96.01 Acute respiratory failure with hypoxia; J15.9 Unspecified bacterial pneumonia; E87.1 Hypo-osmolality and hyponatremia; E87.20 Acidosis, unspecified; R65.20 Severe sepsis without septic shock; K59.00 Constipation, unspecified; E78.5 Hyperlipidemia, unspecified; E87.6 Hypokalemia; E80.6 Other disorders of bilirubin metabolism; Z20.822 Contact with and (suspected) exposure to COVID-19; Z90.710 Acquired absence of both cervix and uterus
CPT/HCPCS: 36415; 36600; 71045; 74018; 80048; 80053; 80061; 80307; 81001; 82805; 82962; 83036; 83605; 83690; 83735; 83880; 84443; 84484; 85007; 85025; 85027; 87040; 87086; 87426; 87804; 93005; 93306; 96365; 96375; 99291; G0378; J0131; J2405

== ENCOUNTER 2025-06-11 06:50 | Outpatient (CLI) | payer OTHER ==
[~2025-06-11 06:50] MED LIST: DOXY100C79 PO; FENO48TA13 PO
[2025-06-11 07:47] LABS: Alanine Aminotransferase 13.0 U/L (7-40); HDL Cholesterol 48.0 mg/dL (40-59); Potassium 4.2 mmol/L (3.5-5.1)
[2025-06-11 07:53] LABS: Cholesterol 215.0 mg/dL (< 200); Triglycerides 171.0 mg/dL (< 150)
== END 2025-06-11 17:00 | disposition home or self-care (01) ==
LOC: LAB 06:50
PROVIDERS: ATTEND Internal Medicine
DX: E78.1 Pure hyperglyceridemia (principal); E87.6 Hypokalemia
CPT/HCPCS: 36415; 80061; 84132; 84450; 84460